=== PATIENT | female | born 1960 | race Two or more races ===

== ENCOUNTER → 2024-05-06 | Outpatient (CLI) | payer MEDICARE, MEDICAID, SELFPAY ==
--- NOTE | 2024-05-06 14:00 | XR_ITS ---
EXAMINATION: PET/CT FUSION SKULL TO THIGH EXAM DATE AND TIME: May 06, 2024 1442 hours INDICATIONS: Diagnosis lymphoma prior to treatment staging CTDI:vol (mGy) 8.37 DLP: (mGycm) 764.83 PROCEDURE: 15.94 mCi FDG was administered intravenously To allow for distribution and uptake of radiotracer, the patient was allowed to rest quietly in a shielded room. Imaging was performed on an integrated 16-slice PET/CT scanner, with scanning from the skull base to the mid thigh. Serum blood glucose at the time of the injection was measured 122 mg/dL. CT scanning was performed without oral or intravenous contrast material. FINDINGS: Head and Neck: There is no silke hypermetabolism in the neck. The visualized portions of the brain are normal in appearance on CT. Chest: Hypermetabolic high anterior periaortic node 16 mm multiple right tracheobronchial lymph nodes, the largest 16 mm, lymphadenopathy adjacent to the thoracic aortic arch, the largest 15 mm, aorta pulmonary window lymphadenopathy, the largest 12 mm as well as subcarinal lymphadenopathy measuring 29 mm Abdomen and Pelvis: There is no silke hypermetabolism in retroperitoneal or pelvic chains. The spleen is normal in size and FDG avidity. Musculoskeletal: Marrow uptake is within normal range. IMPRESSION: Hypermetabolic mediastinal lymphadenopathy as above Recommend high resolution CT soft tissue neck chest abdomen pelvis post intravenous contrast follow-up
== END | disposition home or self-care (01) ==
PROVIDERS: PCP Physician Assistant; Referring Provider Physician Assistant; Visit Provider Physician Assistant
DX: R59.0 Localized enlarged lymph nodes (principal)
CPT/HCPCS: 78815; A9552